=== PATIENT | female | born 1935 | race Caucasian/White ===

== ENCOUNTER 2020-01-31 07:27 | Day surgery (SDC) | payer MEDICARE ==
--- NOTE | ~2020-01-31 | OR ---
[facility] [address], [place] [address] Draft DATE OF OPERATION: 01/31/2020 SURGEON: Alexa Thomas MD PREOPERATIVE DIAGNOSIS: Right central upper breast carcinoma, status post excision with positive margin (medial aspect). POSTOPERATIVE DIAGNOSES: 1. Right central upper breast carcinoma, status post excision with positive margin (medial aspect). 2. [place] lymph node, negative on frozen pathology. PROCEDURES: 1. Injection of methylene blue dye for sentinel lymph node identification, right breast. 2. Right deep axillary sentinel lymph node biopsy (two nodes excised). 3. Re-excision of right breast tissue (partial mastectomy with layered closure). ANESTHESIA: General LMA; Reese Tran CRNA. INDICATION: This 84-year-old white woman is a patient of Dr. Michelle Thorpe and referred by Dr. Zarina Rosales with an abnormality of the right central breast. She was considered not adequate for image guided biopsy alone and therefore underwent a needle localized excisional biopsy. Biopsy confirmed a lesion that was small, consistent with infiltrating ductal breast carcinoma, but with a positive margin. Mindful of the position of the lesion in relation to the biopsy cavity, I am quite certain that the medial aspect would be the positive margin for which additional excision is necessary. Additionally, since she does have infiltrating ductal breast carcinoma, sentinel lymph node biopsy has been recommended by me to properly stage her situation. It was anticipated that she undergo sentinel lymph node biopsy with both radionuclide and methylene blue dye, but due to scheduling issues, only methylene blue dye will be used for sentinel lymph node identification today. The risks of bleeding, infection, cosmetic deformity, and other unforeseen complications were reviewed with her in detail. She understands and wished to proceed. PATIENT NAME: SAMIA QUEZADA OPERATIVE REPORT DATE OF : 39 REPORT #: [id number] PHYSICIAN: ALEXA THOMAS MD PCP: MICHELLE THORPE MD REPORT IS CONFIDENTIAL AND NOT TO BE RELEASED WITHOUT AUTHORIZATION [facility] [address], [place] [address] Draft FINDINGS: 2 mL of methylene blue dye was used for sentinel lymph node identification. Good uptake was noted into a sentinel lymph node. This excised node had another small node, which had no dye in it and excised concurrently. Both were found to be negative on frozen pathology without signs of metastatic disease. There were no other avid lymph nodes within the axilla, though the lymphatic uptake was quite good in general terms. As regards the breast area, the breast cavity was excised with a 1 cm to 2 cm margin, particularly in the medial aspect. A slick cavity of the biopsy site had a small nodule in the area likely related to prior excision and this was marked with an extra long stitch in the medial margin with a long stitch. I am confident that margin will be negative at this point. A fair amount of breast tissue has been excised in the upper central aspect of the breast, but parenchymal reapproximation has minimized the cosmetic deformity. DESCRIPTION OF PROCEDURE: The patient was brought to the operating room, given a general anesthetic by LMA technique. Preoperative antibiotic Ancef was given. Sequential compression device and stockings used and heparin subcutaneously administered. The right breast had an incision in the circumareolar area that was well healed. Injection of 2 mL of methylene blue dye was undertaken in the subepithelial space in the upper outer aspect of the right breast and brief amount of breast massage undertaken. Uptake of dye into the lymphatics was quite obvious. The breast and axilla and so forth was then prepared with chlorhexidine solution and draped sterilely. A transverse incision was made in the mid axilla. The area considered most likely to have uptake. Dissection was carried through the dermis sharply and using blunt and electrocautery dissection with meticulous care blue lymphatic channels were identified. These were followed into the depths of the axilla identifying a bright blue lymph node indicative of a sentinel lymph node. This was dissected free with sharp dissection. A small non-avid lymph node was excised concurrently. This was passed for pathology. Further examination of the axilla showed no other blue lymph nodes and blue lymphatic channel all appeared to go to the area previously excised. The area was then packed. Attention was turned towards re-excision. In the superior aspect of the areolar margin on the right side the previous incision was opened with a #15 blade. Dissection was carried through the subcutaneous and breast tissue with electrocautery ultimately encountering the seroma cavity. Allis clamps were used to grasp the edges of the seroma cavity, particularly medially. Wide excision was undertaken with electrocautery providing at least a 2 cm margin in the area, almost certainly related to the positive margin on previous excision. This was taken down to the pectoralis fascia including some muscle with it. Excision laterally was less in extent, but the entire biopsy excision cavity was excised. Examination of the excised tissue showed a slick cavity of PATIENT NAME: SAMIA QUEZADA OPERATIVE REPORT DATE OF : 39 REPORT #: [id number] PHYSICIAN: ALEXA THOMAS MD PCP: MICHELLE THORPE MD REPORT IS CONFIDENTIAL AND NOT TO BE RELEASED WITHOUT AUTHORIZATION [address] [address] Draft the seroma cavity and a nodule medially as might be expected. This was marked with a suture to direct the pathologist. The distant margin from this in the medial aspect was marked with suture and appropriately labeled as was the other area of the specimen with two shorter stitches internally. Irrigation was undertaken and electrocautery used for hemostasis. The defect in the central aspect of the breast was relatively significant. Parenchymal reapproximation with mobilization of the parenchyma inferiorly to allow for closure of the defect quite readily. Though there was still somewhat of a defect, the cosmetic result is much improved. Multiple layers of interrupted 2-0 Vicryl used to approximate the parenchyma. The drain was not needed. Interrupted 2-0 Vicryl used for the deep dermis and the skin closed with a running subcuticular 3-0 Vicryl. By this point, frozen pathology regarding the axillary lymph node was noted by Dr. Kirkland and showed no evidence of metastatic disease. This secondary lymph node incidentally excised without uptake was also negative. Reinspection of the axilla showed good hemostasis that wound was closed with interrupted 2-0 Vicryl in deep layer and running subcuticular 3-0 Vicryl for the skin. Steri-Strips were applied to each site as were silver sponge dressings. The patient was ultimately allowed to emerge from anesthesia and taken to recovery room after extubation. Blood loss was less than 20 mL. Sponge, needle and instrument counts were reported as correct x3. MD RHIANNA Jacome/SAWYER /[id number] cc: MD Zarina Choi MD Copies: MICHELLE THORPE MD, CYNTHIA SUE MD ~ PATIENT NAME: SAMIA QUEZADA OPERATIVE REPORT DATE OF : 39 REPORT #: [id number] PHYSICIAN: ALEXA THOMAS MD PCP: MICHELLE THORPE MD REPORT IS CONFIDENTIAL AND NOT TO BE RELEASED WITHOUT AUTHORIZATION
[~2020-01-31 07:27] MED LIST: ACETAMINOPHEN500 MG PO; ADULT ASPIRIN R81 MG PO; EZETIMIBE10 MG PO; IBUPROFEN600 MG PO; K-TAB ER20 MEQ PO; OLMESARTAN-HCT1 EAC1 PO; OXYCODON-ACETA1 EAC2 PO; ROSUVASTATIN CA40 MG PO
--- NOTE | 2020-01-31 09:25 | NUR ---
PT RESTING IN BED. READY FOR X-RAY. DENIES PAIN, NAUSEA, OR NEEDS
--- NOTE | 2020-01-31 13:29 | NUR ---
01/31/20 1329 Sheets,Amy 1324 PT ARRIVED TO PACU WITH ORAL AIRWAY IN PLACE AND O2 MONIQUE IN PLACE AT 6L. RESP EVEN AND UNLABORED. VSS.
[2020-01-31] MEDS ORDERED: IBUPROFEN600 MG PO (13:49)
[2020-01-31] MEDS ORDERED: ACETAMINOPHEN500 MG PO (13:49)
[2020-01-31] MEDS ORDERED: OXYCODON-ACETA1 EAC2 PO (13:50)
--- NOTE | 2020-01-31 14:33 | NUR ---
PT MEDICATED FOR PAIN PER EMAR. ORIGIONAL RX GIVEN WITH DISCHARGE PAPERWORK TO FAMILY. DENIES NAUSEA.
--- NOTE | 2020-01-31 14:55 | NUR ---
REVIEDED DISCHARGE INSTRUCTIONS WITH PT AND AT BEDSIDE. RX GIVEN TO PT WITH COPY OF INSTRUCTIONS. FOLLOW UP APPOINTMENT MADE AND PT NOTIFIED. STEADY ON FEET WITH ONE PERSON STAND BY ASSIST FOR TRANSFER TO WHEELCHAIR. CONTINUES TO DENY NAUSEA AND REPORTS MINIMAL PAIN.
--- NOTE | 2020-02-08 11:27 | PATH ---
[facility] [address], [place] [address] Signed SPECIMEN(S): A RIGHT AXILLARY SENTINEL LYMPH NODE SPECIMEN(S): B RIGHT BREAST SPECIMEN SOURCE: A. RIGHT AXILLARY SENTINEL LYMPH NODE B. RIGHT BREAST CLINICAL HISTORY: Right breast ca. Specimen Time to Fixation- 01/31/2020 1:08:00 PM FROZEN SECTION DIAGNOSIS: A. Right axillary sentinel lymph node: - No evidence of malignancy (2 lymph nodes). Wilma Kirkland M.D. Called to Dr. Billy 12:59 p.m. 01/31/2020 AI (under the direct supervision of a pathologist) The Gross Description was prepared using a voice recognition system. The report was reviewed for accuracy; however, sound-alike word errors, addition and/or deletions may occur. If there is any question about this report, please contact Client Services. FINAL PATHOLOGIC DIAGNOSIS: A. [place] lymph nodes, right axilla, excisional biopsy: - Two lymph nodes with no evidence of malignancy (0/2). - See Microscopic. B. Breast, right, re-excision: - Residual low-grade invasive ductal carcinoma. - Tumor size: 8 mm in greatest dimension. 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 - Architectural patterns: Solid and cribriform types. - Margins: - Invasive carcinoma margins: Focally positive (tumor on ink). - Invasive carcinoma is focally present on cauterized, inked new margin on medial side of specimen. - DCIS margins: Negative. - DCIS is 2 mm from the lateral new margin and 6 mm from new margin on the medial side of specimen. - Postsurgical site changes. - Fibroadenomas. - Fibrocystic change including apocrine metaplasia, cyst formation, and adenosis. PATIENT NAME: SAMIA QUEZADA PATHOLOGY DATE OF : 39 REPORT #: [id number] PHYSICIAN: ANDREW PATHOLOGY PCP: MICHELLE BOLANOS MD REPORT IS CONFIDENTIAL AND NOT TO BE RELEASED WITHOUT AUTHORIZATION [facility] [address], [place] [address] Signed - Microcalcifications present in non-neoplastic breast tissue. - See comment. COMMENT: The patient's prior excisional biopsy from 01/10/2020 was reviewed (VS--028). Residual, morphologically identical invasive ductal carcinoma is present at the medial side of the specimen, at the surgeon's designated extra-long suture, "probable residual tumor". The invasive ductal carcinoma spans from the biopsy cavity tissue edge and is focally present at a cauterized, inked new margin surface. Two foci of low-grade DCIS are identified within the lumpectomy. Focus #1 is associated with the residual invasive carcinoma and is 4 mm from the closest cauterized inked new margin. Focus #2 is in the lateral area of the specimen (opposite of the residual invasive carcinoma) and is approximately 2 mm from the inked new lateral margin. Please refer to previously performed breast biomarker studies (413, 01/10/2020) which were reported as ER positive, AL positive, HER negative by IHC, and Ki-67 proliferation index of 8%. A significant amount of residual invasive ductal carcinoma is present in this re-excision specimen, measuring at 8 mm in greatest dimension. The previous lumpectomy specimen also had 8 mm of tumor, which corresponds to the pathologic stage as pT1b (AJCC 8th ed). On imaging, the initial lesion of interest was measured at 3 mm. Given the significant amount of residual tumor in this re-excision, re-evaluation of the pathologic tumor stage (pT) is deferred to future discussion with oncologist and/or radiation oncologist. As part of [facility]' Quality Improvement Program, this case was reviewed by another member of our pathology staff. NAL:cml:C1NR MICROSCOPIC EXAMINATION: Histologic sections of all submitted blocks are examined by light microscopy. Immunohistochemical stains (with appropriately staining controls) for pancytokeratin (AE1/AE3) were performed on appeals representative sections of the sentinel lymph node #1 (A1) and the entire sentinel lymph node #2 (A2) and is negative for metastatic carcinoma. These findings, together with the gross examination, support the pathologic diagnosis. PATIENT NAME: SAMIA QUEZADA PATHOLOGY DATE OF : 39 REPORT #: [id number] PHYSICIAN: ANDREW PATHOLOGY PCP: MICHELLE BOLANOS MD REPORT IS CONFIDENTIAL AND NOT TO BE RELEASED WITHOUT AUTHORIZATION [facility] [address] [place] [address] Signed GROSS DESCRIPTION: Two specimens are received in two containers, labeled "KT." A. The specimen, labeled "KT," and designated on the requisition "right axillary sentinel lymph node," is received fresh for frozen section diagnosis and consists of a 2.0 x 1.0 x 0.5 cm piece of adipose tissue containing two lymph node candidates. The first is 0.6 x 0.5 x 0.5 cm, inked green, and bisected. The second is 0.5 x 0.3 x 0.3 cm, inked blue, and bisected. One half of the first lymph node is submitted in (AFR1) and the entire second node is submitted in (AFR2) for frozen section. The lymph node candidates are submitted entirely for permanent as follows: (A1-AFR1) - half of first node that was submitted for frozen section (A2-AFR2) - entire second node (A3) - second half of first node B. The specimen, labeled "KT," and designated on the requisition "right breast biopsy, double = likely tumor margin area, long = medial margin of the excisional cavity, extra-long = probable residual tumor," is received in formalin and consists of a 55 g yellow, lobulated lumpectomy specimen that is oriented. For the purpose of this dictation the long stitch indicating medial margin of the excisional cavity is designated the medial margin. The specimen is inked as follows: Double stitch-likely tumor margin surface is inked blue; opposite to the double stitch is inked green; the medial margin is inked red; lateral margin is inked orange; the surface that is 2.5 cm from the extra-long stitch is inked yellow; the surface opposite to the yellow inked surface is 4.0 cm from the extra-long stitch and is inked black. The specimen measures 9.2 cm medial to lateral, 7.8 cm from the yellow inked surface to the black surface, and 2.1 cm from the blue inked surface to the green inked surface. On the green inked surface is inked fissure running from the yellow inked surface to the black inked surface and nearly dividing the specimen into 2 pieces. The specimen is sectioned from lateral to medial into 14 slices to reveal mostly yellow, lobular tissue with rare areas of fibroglandular tissue comprises less than 5% of the parenchyma. A grossly definitive mass/lesion is not identified. The specimen is submitted entirely as follows: B1-B3 perpendicularly sectioned lateral margin (slice one) B4-B5 black inked half of slice 2 B6-B7 yellow inked half of slice 2 PATIENT NAME: SAMIA QUEZADA PATHOLOGY DATE OF : 39 REPORT #: [id number] PHYSICIAN: ANDREW OLSEN PCP: MICHELLE BOLANOS MD REPORT IS CONFIDENTIAL AND NOT TO BE RELEASED WITHOUT AUTHORIZATION [facility] [address] [place] [address] Signed B8-B10 trisected slice 3 submitted from the yellow inked surface to the black inked surface B11-B13 trisected slice 4 submitted from the yellow inked surface to the black inked surface B14-B16 trisected slice 5 submitted from the yellow inked surface to the black inked surface B17-B19 trisected slice 6 submitted from the yellow inked surface to the black inked surface B20-B22 trisected slice 7 submitted from the yellow inked surface to the black inked surface B23-B25 trisected slice 8 submitted from the yellow inked surface to the black inked surface B26-B28 trisected slice 9 submitted from the yellow inked surface to the black inked surface B29-B31 trisected slice 10 submitted from the yellow inked surface to the black inked surface B32-B34 trisected slice 11 submitted from the yellow inked surface to the black inked surface B35-B37 trisected slice 12 submitted from the yellow inked surface to the black inked surface (B36 contains the extra-long suture which extends from the blue inked margin) B38-B39 bisected slice 13 B40-B42 perpendicularly sectioned medial end (slice 14) Cold ischemic time: One minute Formalin fixation time: Approximately 23.5 hours ADDITIONAL NOTES: Immunohistochemical and/or in situ hybridization studies were performed on this case with the appropriate positive controls that react as expected. This test was developed and its performance characteristics determined by [facility]. It has not been cleared or approved by the U.S. Food and Drug Administration. The FDA has determined that such clearance or approval is not necessary. This test is used for clinical purposes. It should not be regarded as investigational or for research. [facility] is certified under the Clinical Laboratory Improvement Amendments of 1988 (CLIA) as qualified to perform high complexity clinical laboratory testing. PERFORMING LABORATORY: The frozen section was performed by [facility], [facility], PATIENT NAME: SAMIA QUEZADA PATHOLOGY DATE OF : 39 REPORT #: [id number] PHYSICIAN: ANDREW OLSEN PCP: MICHELLE BOLANOS MD REPORT IS CONFIDENTIAL AND NOT TO BE RELEASED WITHOUT AUTHORIZATION [facility] [address] [facility] [place] [address] Signed [address] [facility] [facility], [place] [address] (CLIA# [id number]). The technical component was performed by [facility], [address] [place] [id number] (Territory Manager: Casandra Ewing MD; CLIA# [id number]). Professional interpretation was performed by [facility], [facility], [address] [place] [id number] (CLIA# [id number]). Diagnostician: Wilma Kirkland MD Pathologist Electronically Signed 02/08/2020 Copies: ~ PATIENT NAME: SAMIA QUEZADA PATHOLOGY DATE OF : 39 REPORT #: [id number] PHYSICIAN: ANDREW OLSEN PCP: MICHELLE BOLANOS MD REPORT IS CONFIDENTIAL AND NOT TO BE RELEASED WITHOUT AUTHORIZATION
== END 2020-01-31 14:45 | disposition home or self-care (01) ==
LOC: DS 07:27
PROVIDERS: ATTEND Surgery
PROC: 0HBT0ZZ Excision of Right Breast, Open Approach (ICD-10-PCS; principal; 2020-01-31 09:30)
PROC: 07B50ZX Excision of Right Axillary Lymphatic, Open Approach, Diagnostic (ICD-10-PCS; 2020-01-31 09:30)
DX: D05.11 Intraductal carcinoma in situ of right breast (principal); I10 Essential (primary) hypertension; Z79.899 Other long term (current) drug therapy; Z79.82 Long term (current) use of aspirin; Z87.891 Personal history of nicotine dependence
CPT/HCPCS: 00406; 19100; 88307; 88342; A9270; J0690; J1100; J1644; J1885; J2001; J2370; J2405; J2704; J3010; J7121; Q9968

== ENCOUNTER 2020-03-09 06:15 | Day surgery (SDC) | payer MEDICARE ==
[~2020-03-09] VITALS: Ht 165.1 cm; Wt 61.2 kg
--- NOTE | 2020-03-09 09:28 | NUR ---
03/09/20 0928 Levon Culp 0928) ARRIVES TO MY CARE, SLIGHTLY CONFUSED BUT ORIENTED REALLY QUICK.
[2020-03-09] MEDS ORDERED: IBUPROFEN600 MG PO (09:37)
[2020-03-09] MEDS ORDERED: OXYCODON-ACETA1 EAC2 PO (09:38)
[2020-03-09] MEDS ORDERED: ACETAMINOPHEN500 MG PO (09:38)
--- NOTE | 2020-03-09 10:00 | NUR ---
PT PROVIDED PUDDING PER REQUEST. DC CRITERIA EXPLAINED TO PT, CALL LIGHT WITHIN REACH.
--- NOTE | 2020-03-09 10:00 | NUR ---
PT ARRIVES TO DS RM 5 VIA STRETCHER ALERT. PT ON 2L VIA NC SATS 100%. PT DENIES ANY NAUSEA AND STATES 3/10 PAIN IN RIGHT BREAST AND TOLERABLE. PT PROVIDED ICED WATER. REQ CELL PHONE TO CALL SPOUSE. CALL LIGHT WITHIN REACH. DC CRITERIA EXPLAINED.
--- NOTE | 2020-03-09 10:30 | NUR ---
PT SPOUSE ARRIVES TO DS RM 5
[2020-03-09] MEDS ORDERED: PERCOCET 7.5-31 EACH PO (10:54)
--- NOTE | 2020-03-09 11:10 | NUR ---
PT UP TO BATHROOM WITH RN ASSIST, STEADY GAIT. PT DENIES ANY NAUSEA OR DIZZINESS WITH MOVEMENT. PT ABLE TO VOID 150 MLS WITH NO PROBLEMS. BACK TO RM 5 TO GET DRESSED. 1115: DC INSTRUCTIONS PROVIDED TO PT AND SPOUSE. GARY DRAIN DEMONSTRATION PROVIDED AND PT PROVIDED GARY FLOWCHART TO DOCUMENT AT HOME. PAIN MEDICATION PRESCRIPTION PROVIDED IN DC PACKET. PT DC VIA WC TO PERSONAL VEHICLE DRIVEN BY SPOUSE TO HOME.
--- NOTE | 2020-03-09 11:16 | NUR ---
PT ALERT, ORIENTED AND SEEMS TO BE MENTALLY AND EMOTIONALLY PREPARED. [facility] AND AT DC FOR HER. ALL QUESTIONS ASKED, ANSWERED. PT DID REQUEST PRAYER, WILL FOLLOW NEEDED
--- NOTE | 2020-03-09 13:52 | OR ---
[facility] [address], [place] [address] Signed DATE OF OPERATION: 03/09/2020 SURGEON: Alexa Thomas MD PREOPERATIVE DIAGNOSIS: Persistent positive margin infiltrating ductal carcinoma, right breast, superior central portion. POSTOPERATIVE DIAGNOSIS: Persistent positive margin infiltrating ductal carcinoma, right breast, superior central portion. PROCEDURE: 1. Re-excision of breast tissue (partial mastectomy) including prior excision cavity. 2. Oncoplastic reconstruction of right breast including pedicle advancement and additional skin excision. ANESTHESIA: General LMA; Chuy Paiz, SEC[employer]ITY SALES MANAGER, and local 10 mL of 0.25% Marcaine with epinephrine. INDICATION: This 84-year-old white woman is a patient of Dr. Michelle Thorpe in [place], [place]. She is originally found to have an abnormal mammogram, underwent image-guided biopsy confirming infiltrating ductal carcinoma. 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 [place] lymph nodes were negative. Re-excision of the site was undertaken to provide a pathologically negative margin; however, even on the re-excision, there considered to be " " regarding infiltrating ductal portion. The DCIS portion had a pathologically negative margin. Consideration has been made for a simple boost therapy in conjunction with her anticipated radiation therapy versus re-excision. She has reviewed this with me and with Dr. Rojas and ultimately wishes to proceed with an additional re-excision to provide for a pathologically negative margin. She understands the risks of bleeding, infection, cosmetic deformity, and other unforeseen complications related to re-excision including the possibility of persistently positive margin, which might necessitate mastectomy. She understands and she wished to proceed. FINDINGS: Excellent cosmesis was noted of the [place] breast despite two major excisions already. Electronically Signed By: ALEXA THOMAS MD 03/09/20 1352 PATIENT NAME: SAMIA QUEZADA OPERATIVE REPORT DATE OF : 39 REPORT #: [id number] PHYSICIAN: ALEXA THOMAS MD PCP: MICHELLE THORPE MD REPORT IS CONFIDENTIAL AND NOT TO BE RELEASED WITHOUT AUTHORIZATION [facility] [address], [place] [address] Signed Additional excision included the entirety of the biopsy cavity, which extended to the pectoralis fascia and with special emphasis on excising tissue more medially concordant to the presumed positive margin. This resulted in a sizable central superior defect. Oncoplastic closure techniques were required for cosmetic benefit, which included mobilization of the lateral breast pedicle and inferior pedicle, and excision of redundant skin on the superior aspect. A much improved appearance for closure is noted at this point. DESCRIPTION OF PROCEDURE: The patient was brought to the operating room, given a general anesthetic by LMA technique. Preoperative antibiotic Ancef was given. Sequential compression device stockings used and heparin subcutaneously administered. The right breast was prepared with a Betadine based solution and draped sterilely. She had numerous seborrheic keratoses of the right chest wall and inferior breast as previously noted. The contour of her breast was quite notably good despite two re-excisions in the past and her incision was in the superior aspect of the areolar margin. A similar incision was made and using electrocautery, wide excision was undertaken of the biopsy cavity. It was largely closed, but there was some ceruminous cavity still noted. Extended down to the pectoralis itself. Wide excision was undertaken particularly medially, where the likely positive margin was located. Excision size was approximately 6-7 cm. This left a sizable defect for closure. Simple closure would result in an impressive depressed area on the superior central portion of the breast. On that basis, oncoplastic closure techniques were needed. The remaining breast pedicle to allow for mobilization and improve the cosmetic appearance was laterally and inferiorly. These pedicles were freed from the underlying pectoralis fascia laterally and inferiorly, and drawn upward allowing for reapproximation to the superior aspect of the remnant of breast tissue. Interrupted 2-0 Vicryl suture was used to provide for this. Mobilization of the lateral inferior breast tissue did provide a good breast contour reasonably symmetric to the contralateral side. This did result of course in a considerable amount of redundant skin superiorly. A circular ellipse of central breast skin in addition to a relatively large medial superior aspect of the skin was additionally excised. These layers were then closed with interrupted 2-0 Vicryl. Prior to closure, a 7 mm flat Willis drain was placed in the submammary space emanating from the lateral aspect of the right breast and secured to the skin with 2-0 nylon suture. By this point, a much improved contour of breast was noted, though obviously the incision itself was quite markedly enlarged compared to the limited periareolar incision preoperatively. The skin was then closed more fully with a running subcuticular 3-0 Vicryl. Steri-Strips were applied as was a silver sponge dressing. The drain was attached to bulb suction. Electronically Signed By: ALEXA THOMAS MD 03/09/20 1352 PATIENT NAME: SAMIA QUEZADA OPERATIVE REPORT DATE OF : 39 REPORT #: [id number] PHYSICIAN: ALEXA THOMAS MD PCP: MICHELLE THORPE MD REPORT IS CONFIDENTIAL AND NOT TO BE RELEASED WITHOUT AUTHORIZATION [facility] [address] [place] [address] Signed 10 mL of 0.25% Marcaine with epinephrine was injected locally. She was ultimately extubated and transferred to the recovery room in good condition, having suffered no complication. Blood loss was approximately 50 mL. MD RHIANNA Jacome/SAWYER /[id number] cc: MD Gaurang Lawton MD Juno Choe, MD, PH.D. Michelle Thorpe MD Copies: DANIELLE BARRON MD,JADEN YEPEZ MD, RUSSEL J MD ~ Electronically Signed By: ALEXA THOMAS MD 03/09/20 1352 PATIENT NAME: SAMIA QUEZADA OPERATIVE REPORT DATE OF : 39 REPORT #: [id number] PHYSICIAN: ALEXA THOMAS MD PCP: THORPE,MICHELLE J MD REPORT IS CONFIDENTIAL AND NOT TO BE RELEASED WITHOUT AUTHORIZATION
--- NOTE | 2020-03-14 16:28 | PATH ---
[facility] [address], [place] [address] Signed SPECIMEN(S): A LYMPH NODES, RIGHT BREAST SPECIMEN(S): B R BREAST, SUPERIOR MEDIAL ASPECT MASS SPECIMEN(S): C RIGHT BREAST SPECIMEN SOURCE: A. LYMPH NODES, RIGHT BREAST B. R BREAST, SUPERIOR MEDIAL ASPECT MASS C. RIGHT BREAST CLINICAL HISTORY: Right breast cancer. Right breast lumpectomy. FINAL PATHOLOGIC DIAGNOSIS: A. Lymph nodes, right peripectoral, excisional biopsy: - Fragments of fibromembranous tissue with postsurgical site reaction, skeletal muscle, and fibrinous debris. - No lymph node tissue identified. B. Breast, right, superior medial aspect, re-excision: - Focal atypical ductal hyperplasia (ADH); completely excised. - Fibrocystic changes including apocrine metaplasia, cyst formation, and adenosis. - Postsurgical site changes. - Negative for residual carcinoma. C. Skin, right breast, excision: - Deep dermal/subcutaneous postsurgical site changes. - Seborrheic keratoses. COMMENT: As part of [facility] Quality Improvement Program, part B of this case was reviewed by another member of our pathology staff. NAL:cml:C2NR MICROSCOPIC EXAMINATION: Histologic sections of all submitted blocks are examined by light microscopy. These findings, together with the gross examination, support the pathologic diagnosis. GROSS DESCRIPTION: Three specimens are received in three containers, labeled "Samia Quezada." A. The specimen, labeled "Samia Quezada A," and designated on the requisition "ayana-pectoral lymph nodes right breast," is received in formalin PATIENT NAME: SAMIA QUEZADA PATHOLOGY DATE OF : 39 REPORT #: [id number] PHYSICIAN: ANDREW PATHOLOGY PCP: MICHELLE BOLANOS MD REPORT IS CONFIDENTIAL AND NOT TO BE RELEASED WITHOUT AUTHORIZATION [facility] [address], [place] [address] Signed and consists of five toro-mondragon soft nodules that range in size from 1.4 cm up to 2.3 cm in greatest dimension. These nodules are entirely submitted for histologic examination. Cassette summary: (A1) one possible lymph node, serially sectioned (A2) one possible lymph node, serially sectioned (A3) one possible lymph node, serially sectioned (A4) one possible lymph node, serially sectioned (A5-A6) one possible lymph node, serially sectioned. B. The specimen, labeled "Samia Quezada B," and designated on the requisition "re-excision right breast superior medial aspect mass," is received in formalin and consists of a 28 gram oriented portion of yellow-mondragon fibroadipose tissue that is 5.6 x 5.2 x 3.4 cm. A long suture identifies the lateral margin, a short suture identifies the superior margin and a double suture identifies the deep/posterior margin. The lateral and posterior aspect of the specimen displays areas of yellow chalky material and a defect that is 1.8 x 0.9 cm. This defect communicates with the biopsy cavity. The specimen is inked as follows: superior - blue; inferior - green; medial - red; lateral - orange; anterior - yellow; and posterior - black. The specimen is serially sectioned from medial to lateral into 12 slices revealing a 3.7x 3.1 x 1.7 cm collapsed biopsy cavity. The biopsy cavity is 0.7 cm from the anterior soft tissue margin, extends to the posterior soft tissue margin, 1.0 cm from the superior soft tissue margin, 1.3 cm from the inferior soft tissue margin, 2.2 cm from the medial soft tissue margin, and extends to the lateral soft tissue margin. Approximately 50% of the remaining specimen is a yellow-mondragon greasy adipose tissue and 50% is a white-mondragon fibrous tissue with yellow chalky material. The specimen is entirely submitted in 24 cassettes. Cassette summary: (B1-B3) slice one, perpendicular (B4-B5) slice two (B6-B7) slice three (B8-B9) slice four (B10-B11) slice five (B12-B13) slice six (B14-B15) slice seven (B16-B17) slice eight (B18-B19) slice nine PATIENT NAME: DAMIENSAMIA CANALES PATHOLOGY DATE OF : 39 REPORT #: [id number] PHYSICIAN: ANDREW OLSEN PCP: MICHELLE BOLANOS MD REPORT IS CONFIDENTIAL AND NOT TO BE RELEASED WITHOUT AUTHORIZATION [facility] [address], [place] [address] Signed (B20-B21) slice ten (B22) slice eleven (B23-B24) slice twelve, perpendicular. Cold ischemia time: Insufficient data to calculate. Approximate formalin time: 48-72 hours. C. The specimen, labeled "Samia Quezada C," and designated on the requisition "skin from reconstruction right breast," is received in formalin and consists of three unoriented portions of skin that range in size from 3.4 x 1.6 x 0.7 cm up to 6.2 x 2.5 x 1.7 cm. The skin surfaces are pale pink and wrinkled with underlying fibroadipose tissue. No discrete mass lesions are grossly identified. Mica Paster sections are submitted in cassettes (C1-C2). Cold ischemia time: Insufficient data to calculate. Approximate Formalin time: 48-72 hours. FB (under the direct supervision of a pathologist) The Gross Description was prepared using a voice recognition system. The report was reviewed for accuracy; however, sound-alike word errors, addition and/or deletions may occur. If there is any question about this report, please contact Client Services. PERFORMING LABORATORY: The technical component [place] [address] (Title Agent: Casandra Ewing MD; CLIA# [id number]). Professional interpretation was performed by [facility] [address] (CLIA# [id number]). Diagnostician: Wilma Kirkland MD Pathologist Electronically Signed 03/14/2020 Copies: ~ PATIENT NAME: SAMIA QUEZADA PATHOLOGY DATE OF : 39 REPORT #: [id number] PHYSICIAN: ANDREW OLSEN PCP: MICHELLE BOLANOS MD REPORT IS CONFIDENTIAL AND NOT TO BE RELEASED WITHOUT AUTHORIZATION
== END 2020-03-09 11:30 | disposition home or self-care (01) ==
LOC: DS 06:15 → OPS 06:15 → DS 12:30 → OPS 12:30
PROVIDERS: ATTEND Surgery
PROC: 0HBT0ZZ Excision of Right Breast, Open Approach (ICD-10-PCS; principal; 2020-03-09 06:45)
DX: N62 Hypertrophy of breast (principal); N60.21 Fibroadenosis of right breast; L82.1 Other seborrheic keratosis; N60.81 Other benign mammary dysplasias of right breast; I10 Essential (primary) hypertension; Z79.899 Other long term (current) drug therapy
CPT/HCPCS: 00404; 88302; 88305; 88307; A9270; J0690; J1100; J1644; J1885; J2001; J2405; J2704; J3010; J7121; Q9968

== ENCOUNTER 2022-09-26 13:55 | Emergency (ER) | payer MEDICARE ==
[~2022-09-26] VITALS: Ht 165.1 cm; Wt 61.2 kg
[~2022-09-26 13:55] MED LIST changes: +PERCOCET 7.5-31 EACH PO
[2022-09-26] MEDS ORDERED: LORAZEPAM0.5 MG PO (14:17)
[2022-09-26 17:40] VITALS: BP 142/66
--- NOTE | 2022-09-27 22:10 | EKG ---
[facility] [address] [facility] [place] [address] Signed Normal sinus rhythm Possible Left atrial enlargement Borderline ECG No previous ECGs available Confirmed by Loulou Tabares MD () on 09/27/2022 10:10:22 PM Electronically Signed By: LOULOU TABAERS MD 09/27/222209 PATIENT NAME: SAMIA QUEZADA Electrocardiogram DATE OF : 39 PHYSICIAN: LOULOU TABARES MD REPORT #: [id number] REPORT IS CONFIDENTIAL AND NOT TO BE RELEASED WITHOUT AUTHORIZATION
== END 2022-09-26 17:42 | disposition home or self-care (01) ==
LOC: ED 13:55
DX: R55 Syncope and collapse (principal); Z20.822 Contact with and (suspected) exposure to COVID-19; I10 Essential (primary) hypertension; E78.5 Hyperlipidemia, unspecified; Z85.3 Personal history of malignant neoplasm of breast; Z87.891 Personal history of nicotine dependence; Z79.899 Other long term (current) drug therapy; Z79.82 Long term (current) use of aspirin
CPT/HCPCS: 36415; 80053; 81001; 83735; 84484; 85025; 87502; 93005; 93010; 99284-25; C9803; J7030; U0003